=== PATIENT | male | born 1995 | race Caucasian/White ===

== ENCOUNTER 2019-02-14 20:12 | Emergency (ER) | payer MEDICAID ==
[~2019-02-14] VITALS: Ht 188 cm; Wt 82.1 kg
[2019-02-14 20:16] VITALS: Ht 188 cm; Wt 82.1 kg
[2019-02-14 21:15] LABS: BASOPHIL % 0.4 % (0-2); PLATELET COUNT 272 x10^3mcL (130-400); RED CELL DISTRIBUTION WIDTH 13.1 % (11.5-14.5)
[2019-02-14 21:25] LABS: CALCIUM 8.2 mg/dL (8.5-10.1); CARBON DIOXIDE 25.6 mmol/L (21-32); CHLORIDE SERUM 107 mmol/L (98-107); GFR1 > 60 mL/min; GLUCOSE SERUM 92 mg/dL (74-106); SODIUM SERUM 142 mmol/L (136-145)
[2019-02-14 21:29] LABS: ALKALINE PHOSPHATASE 64 U/L (46-116); ALT/SGPT 23 U/L (16-63); AST/SGOT 9 U/L (15-37); BILIRUBIN TOTAL 0.56 mg/dL (0.20-1.00); TOTAL PROTEIN, SERUM 7.3 g/dL (6.4-8.2)
[2019-02-14 21:41] LABS: microscopic required? NO
[2019-02-14 21:49] LABS: UA SPECIFIC GRAVITY <=1.005 (1.005-1.035); urine erythrocyte NEGATIVE (NEGATIVE)
[2019-02-14 22:17] VITALS: BP 117/78
== END 2019-02-14 22:17 | disposition home or self-care (01) ==
LOC: ED 20:12
PROVIDERS: Emergency Medicine
DX: R00.2 Palpitations (principal); E86.0 Dehydration
CPT/HCPCS: J7030

== ENCOUNTER 2019-02-17 00:55 | Emergency (ER) | payer MEDICAID ==
[~2019-02-17] VITALS: Ht 188 cm; Wt 83.9 kg
[2019-02-17 01:00] VITALS: BP 135/92; Ht 188 cm; Wt 83.9 kg
== END 2019-02-17 02:28 | disposition left against medical advice (07) ==
LOC: ED 00:55
DX: Z53.21 Procedure and treatment not carried out due to patient leaving prior to being seen by health care provider (principal)

== ENCOUNTER 2019-02-26 00:28 | Emergency (ER) | payer MEDICAID ==
[~2019-02-26] VITALS: Ht 188 cm; Wt 81.6 kg
[2019-02-26 02:18] LABS: AMPHETAMINE QUAL UR NONE DETECTED (See below)
[2019-02-26 02:31] LABS: BASOPHIL % 0.3 % (0-2); PLATELET COUNT 311 x10^3mcL (130-400); RED CELL DISTRIBUTION WIDTH 13.2 % (11.5-14.5)
[2019-02-26 02:38] LABS: CALCIUM 9.9 mg/dL (8.5-10.1); CARBON DIOXIDE 27.5 mmol/L (21-32); CHLORIDE SERUM 104 mmol/L (98-107); GFR1 > 60 mL/min; GLUCOSE SERUM 87 mg/dL (74-106); POTASSIUM SERUM 3.3 mmol/L (3.5-5.1); SODIUM SERUM 141 mmol/L (136-145)
[2019-02-26 02:47] LABS: FREE T4 1.19 ng/dL (0.76-1.46); FREE THYROXINE INDEX 3.4 ug/dL (1.4-4.5); T4(THYROXINE) 10.4 ug/dL (4.7-13.3)
[2019-02-26 02:53] LABS: ALBUMIN 4.6 g/dL (3.4-5.0); ALKALINE PHOSPHATASE 67 U/L (46-116); AST/SGOT 12 U/L (15-37); BILIRUBIN TOTAL 0.59 mg/dL (0.20-1.00); MAGNESIUM 2.1 mg/dL (1.8-2.4); TOTAL PROTEIN, SERUM 8.5 g/dL (6.4-8.2)
[2019-02-26 02:56] LABS: ALT/SGPT 27 U/L (16-63)
[2019-02-26 03:10] LABS: T3 TOTAL 1.69 ng/mL
[2019-02-26 03:56] VITALS: BP 111/66
== END 2019-02-26 03:56 | disposition home or self-care (01) ==
LOC: ED 00:28
PROVIDERS: Emergency Medicine
DX: R00.2 Palpitations (principal); E87.6 Hypokalemia
CPT/HCPCS: 84439; J7030; Q0092